=== PATIENT | female | born 1965 | race Caucasian/White ===

== ENCOUNTER 2018-06-14 05:52 | Emergency (ER) | payer MEDICARE, OTHER ==
[~2018-06-14] VITALS: Ht 170.2 cm; Wt 57.6 kg
[~2018-06-14 05:52] MED LIST: CLONAZEP ODT0.5 MG OR; NAPROXEN375 MG OR; PROSOM1 MG OR
[2018-06-14 07:01] LABS: ALBUMIN 5.4 g/dL (3.2-5.0); ALKALINE PHOSPHATASE 97 u/l (38-126); ANION GAP 17 (6-22 (CALC)); BILIRUBIN, TOTAL 0.4 mg/dL (0.0-1.4); BUN 12 mg/dL (7-17); BUN/CREATININE RATIO 25 (12-20 (CALC)); CARBON DIOXIDE 27 mmol/l (22-30); CHLORIDE 103 mmol/l (95-108); CREATININE 0.5 mg/dL (0.5-1.0); GFR > 60 ML/MIN (>=60 (CALC)); GFR FOR AFR.AMER. > 60 ML/MIN (>=60 (CALC)); POTASSIUM 4.1 mmol/l (3.5-5.1); SGOT/AST 30 u/l (14-36); SODIUM 144 mmol/l (137-146); TOTAL PROTEIN 9.1 g/dL (6.3-8.2)
[2018-06-14 07:02] LABS: URINE BILIRUBIN - DIPSTICK NEGATIVE (NEGATIVE); URINE BLOOD DIPSTICK LARGE (NEGATIVE); URINE GLUCOSE - DIPSTICK NEGATIVE (NEGATIVE); URINE KETONE TRACE mg/dL (NEGATIVE); URINE LEUK ESTERASE NEGATIVE (NEGATIVE); URINE NITRITE - DIPSTICK NEGATIVE (Negative); URINE PROTEIN - DIPSTICK TRACE mg/dL (NEG-TRACE); URINE SPECIFIC GRAVITY 1.025; URINE UROBILINOGEN - DIPSTICK 0.2 E.U./dL (0.2)
[2018-06-14 07:03] LABS: URINE CLARITY TURBID; URINE COLOR DK. YELLOW
[2018-06-14 07:07] LABS: HEMOGLOBIN 15.6 g/dl (12.0-16.0); IMMATURE GRANULOCYTES 0.2 % (0.0-5.0); MEAN CELL VOLUME 87.3 fL CALC (80.0-100.0); MEAN CORPUSCULAR HGB 29.6 pG CALC (26.0-32.0); MEAN CORPUSCULAR HGB CONC 33.9 g/L CALC (32.0-36.0); NEUT# 2.7 thou/uL (2.00-7.15); RED BLOOD COUNT 5.27 mill/uL (4.20-5.60); RED CELL DISTRI WIDTH 12.9 % (11.5-15.5)
[2018-06-14 07:14] LABS: URINE BACTERIA RARE hpf; URINE EPITHELIAL CELLS RARE EPI/hpf (0-FEW); URINE RBC TNTC RBC/hpf (0-5)
[2018-06-14] MEDS ORDERED: ULTRAM50 M1 PO (07:44)
[2018-06-14] MEDS ORDERED: MACROBID100 MG PO (07:44)
[2018-06-14 08:07] VITALS: BP 140/85
== END 2018-06-14 08:07 | disposition home or self-care (01) ==
LOC: ED 05:52
PROVIDERS: Emergency Medicine
DX: N20.0 Calculus of kidney (principal); N39.0 Urinary tract infection, site not specified